=== PATIENT | female | born 1955 | race Two or more races ===

== ENCOUNTER 2016-04-29 19:31 | Emergency (ER) | payer MEDICAID ==
[~2016-04-29] VITALS: Ht 162.6 cm; Wt 61.2 kg
[2016-04-29 21:50] LABS: ADD UA MICROSCOPIC YES; KETONES,URINE Negative (NEGATIVE); LEUKOCYTE ESTERASE ,URINE Moderate (NEGATIVE)
[2016-04-29 21:55] LABS: ADD URINE CULTURE YES; RBC,URINE NONE SEEN /HPF (0-2)
[2016-04-29] MEDS ORDERED: ONDANSETRON HCL/PF 4 MG/2 ML VIAL IVP ONE (22:30)
[2016-04-29] MEDS ORDERED: IV NS 0.9% 1,000 ML BAG IV ONE (22:30)
[2016-04-29] MEDS ORDERED: PANTOPRAZOLE 40 MG VIAL IV ONE (22:30)
[2016-04-29] MEDS ORDERED: IV SET PRIMARY 1 EA INFUS.SET MC ONE (23:02)
[2016-04-29] MEDS ORDERED: IV NS 0.9% 1,000 ML ONE (23:02)
[2016-04-29] MEDS ORDERED: ONDANSETRON HCL/PF 4 MG/2 ML VIAL ONE (23:02)
[2016-04-29] MEDS ORDERED: PANTOPRAZOLE 40 MG VIAL ONE (23:02)
[2016-04-29 23:16] LABS: BASOPHILS % (AUTO) 1.2 % (0.0-2.0); DIFF TOTAL % 100 %; EOSINOPHILS # (AUTO) 0.2 /CMM (0.0-0.7); EOSINOPHILS % (AUTO) 4.3 % (0.0-6.0); HEMATOCRIT 38 % (33-45); HEMOGLOBIN 12.9 g/dL (11.5-14.8); LYMPHOCYTES # (AUTO) 1.6 /CMM (0.8-4.8); LYMPHOCYTES % (AUTO) 45.2 % (20.0-44.0); MEAN CORPUSCULAR HEMOGLOBIN 32 PG (26.0-33.0); MEAN CORPUSCULAR HGB CONC 34 g/dl (31.0-36.0); MEAN CORPUSCULAR VOLUME 95 fL (82-100); MONOCYTES # (AUTO) 0.8 /CMM (0.1-1.30); MONOCYTES % (AUTO) 23.7 % (2.0-12.0); NEUTROPHILS # (AUTO) 0.9 /CMM (1.8-8.9); NEUTROPHILS % (AUTO) 25.6 % (43.0-81.0); PLATELET COUNT (AUTO) 204 /CMM (150-450); RED BLOOD CELL COUNT(AUTO) 3.97 MIL/uL (4.0-5.2); WHITE BLOOD COUNT (AUTO) 3.5 K/uL (4.3-11.0)
[2016-04-29 23:22] LABS: CALCIUM, SERUM 8.2 mg/dL (8.5-10.1); CREATININE 0.8 mg/dL (0.6-1.3); POTASSIUM 3.6 mmol/L (3.5-5.1)
[2016-04-29 23:28] LABS: ALBUMIN 3.4 g/dL (3.4-5.0); BILIRUBIN,DIRECT 0.1 mg/dL (0.0-0.2); BILIRUBIN,TOTAL 0.2 mg/dL (0.2-1.0); INDIRECT BILIRUBIN 0.1 mg/dL (0.0-1.1); TOTAL PROTEIN, SERUM 6.9 g/dL (6.4-8.2)
[2016-04-29 23:46] LABS: BAND % (MANUAL) 2 % (0.0-5.0); BASOPHILS % (MANUAL) 0 % (0.0-2.0); EOSINOPHILS % (MANUAL) 7 % (0-4); LYMPHOCYTES % (MANUAL) 48 % (16-48)
[2016-04-29 23:47] LABS: PLATELET ESTIMATE ADEQUATE
[2016-04-30 00:01] VITALS: BP 117/65
== END 2016-04-30 00:02 | disposition home or self-care (01) ==
LOC: ER 19:34
DX: A08.4 Viral intestinal infection, unspecified (principal); I73.00 Raynaud's syndrome without gangrene
CPT/HCPCS: 36415; 71010; 76700; 80048; 80076; 81001; 83690; 85025; 87086; 96361; 96374; 96375; 99285; A4606; C9113; J2405; J7030; Z7610; 81000-TC